=== PATIENT | male | born 1965 | race Hispanic/Latino ===

== ENCOUNTER 2019-01-28 16:18 | Emergency (ER) | payer OTHER ==
[2019-01-28 17:38] VITALS: BP 166/94
--- NOTE | 2019-01-28 17:39 | Emergency Department Report ---
Chief Complaint: Wound/Laceration Stated Complaint: (L) BIG TOE INFECTED Time Seen by Provider: 01/28/19 17:35 - HPI History of Present Illness: This is a 53 y.o. male that presents with left great toe pain and drainage from infection. PMH DM2 Patient treated with antibiotics twice and pain medication with no improvement of symptoms. - Exam Vital Signs: Vital Signs 01/28/19 17:36 Temperature 97.8 F Pulse Rate 95 H Respiratory 20 Rate Blood Pressure 166/94 O2 Sat by Pulse 95 Oximetry MSE screening note: Focused history and physical exam performed. Due to findings the following was ordered: lab acc for further evaluation ED Disposition for MSE Condition: Stable
[2019-01-28 18:30] LABS: Basophils # (Auto) 0.1 K/mm3 (0.0-0.1); Eosinophils # (Auto) 0.4 K/mm3 (0.0-0.4); Eosinophils % (Auto) 3.6 % (0.0-4.3); Hematocrit 49.4 % (35.5-45.6); Hemoglobin 16.7 gm/dl (11.8-15.2); Lymphocytes # (Auto) 2.6 K/mm3 (1.2-5.4); Lymphocytes % (Auto) 23.7 % (13.4-35.0); Mean Corpuscular HGB Conc 34 % (32-34); Mean Corpuscular Volume 89 fl (84-94); Monocytes % (Auto) 8.8 % (0.0-7.3); Platelet Count 228 K/mm3 (140-440); Red Blood Count 5.58 M/mm3 (3.65-5.03); Red Cell Distribution Width 14.5 % (13.2-15.2)
[2019-01-28 18:47] LABS: BUN/Creatinine Ratio 27; Blood Urea Nitrogen 27 mg/dL (9-20); Calcium 9.3 mg/dL (8.4-10.2); Hemolysis Index 21
--- NOTE | 2019-01-28 19:26 | XRay Report ---
PROCEDURE: XR TOE(S) 2+V LT TECHNIQUE: Frontal view left foot and oblique and lateral views left first toe HISTORY: wound left 1st distal toe COMPARISONS: None FINDINGS: There is soft tissue swelling of the left first toe. There is no evidence of radiopaque foreign body. There is a possible area of lytic change on the plantar surface of the distal phalanx in the region o f the distal diaphysis and proximal tuft. IMPRESSION: 1. Soft tissue swelling with possible lytic change on the plantar aspect of the distal phalanx first toe. CT or MRI may be helpful for further evaluation. This document is electronically signed by Елена Stinson MD., January 28 2019 07:24:52 PM ET
--- NOTE | 2019-01-28 21:09 | Emergency Department Report ---
- General Chief Complaint: Wound/Laceration Stated Complaint: (L) BIG TOE INFECTED Time Seen by Provider: 01/28/19 17:35 Source: patient Mode of arrival: Ambulatory Limitations: No Limitations - History of Present Illness Initial Comments: Pt is a 53 yo male who presents to the ED with c/o left toe infection that began 3 weeks ago. The patient states it initially started as a blister on the left toe. He denies any fever or drainage. He states he went to [facility] twice and was given different antibiotics twice but does not remember the name of the antibiotics. THe patient states he saw his PCP and was referred to [facility] within the next 2 weeks. THe patient has a hx of DM and has not checked his blood glucose in 3 weeks. He states he takes insulin 70/30 50 units in the morning and 50 units at night. The patient states he ate a candy bar prior to coming into the ED today. - Related Data Allergies Allergy/AdvReac Type Severity Reaction Status Date / Time No Known Allergies Allergy Unverified 01/28/19 16:23 ED Review of Systems ROS: Stated complaint: (L) BIG TOE INFECTED Other details as noted in HPI Comment: All other systems reviewed and negative ED Past Medical Hx - Past Medical History Previous Medical History?: Yes Hx Diabetes: Yes - Surgical History Past Surgical History?: No - Social History Smoking Status: Current Every Day Smoker Substance Use Type: None ED Physical Exam - General Limitations: No Limitations General appearance: alert, in no apparent distress - Head Head exam: Present: atraumatic, normocephalic - Eye Eye exam: Present: normal appearance - ENT ENT exam: Present: mucous membranes moist - Extremities Exam Extremities exam: Present: other (large eschar present to the medial side of the left great toe, small amount of surrounding erythema, no obvious purulence present, some increased warmth) - Neurological Exam Neurological exam: Present: alert, oriented X3 - Psychiatric Psychiatric exam: Present: normal affect, normal mood - Skin Skin exam: Present: warm, dry ED Course Vital Signs 01/28/19 17:36 Temperature 97.8 F Pulse Rate 95 H Respiratory 20 Rate Blood Pressure 166/94 O2 Sat by Pulse 95 Oximetry ED Medical Decision Making - Lab Data Result diagrams: 01/28/19 18:21 01/28/19 18:21 - Radiology Data Radiology results: report reviewed XR left great toe shows soft tissue swelling and possible lytic change - Medical Decision Making Pt is a 53 yo male who presents to the ED with c/o left toe infection that began 3 weeks ago. The patient states it initially started as a blister on the left toe. He denies any fever or drainage. He states he went to [facility] twice and was given different antibiotics twice but does not remember the name of the antibiotics. THe patient states he saw his PCP and was referred to [facility] within the next 2 weeks. THe patient has a hx of DM and has not checked his blood glucose in 3 weeks. He states he takes insulin 70/30 50 units in the morning and 50 units at night. The patient states he ate a candy bar prior to coming into the ED today. XR left great toe shows soft tissue swelling and possible lytic change. Blood glucose is 397. Advised pt that he would need to have a CT scan of the left foot to r/o osteomyelitis. Also, we would need to do an examination with a doppler US to identify pulses. Also, discussed with pt that we would need to give him insulin to lower his blood glucose. Pt was a greeable with plan, upon provider leaving the room the patient got into a disagreement with the woman in the room with him and decided he wanted to leave the emergency room. Discussed in detail with pt that it could cause harm to his life, loss of limb, permanent disability, or even if he left the emergency room today (01/28/19). AMA with witness: the patient is alert and oriented x 3. The patient exhibits decision making capacity. The patient is free from distracting injury. The risks of leaving without a complete medical examination, and AGAINST MEDICAL ADVICE, were explained to the patient, and they included , disability, paralysis, permanent loss of quality of life. The patient verbalized understanding to these and was able to articulate these risks in their own words and this conversation was witnessed by LILIANA Riddle. Critical care attestation.: If time is entered above; I have spent that time in minutes in the direct care of this critically ill patient, excluding procedure time. 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 Diabetes mellitus complication status: with skin complications Diabetes mellitus complication detail: with foot ulcer Qualified Code(s): E11.621 - Type 2 diabetes mellitus with foot ulcer; L97.509 - Non-pressure chronic ulcer of other part of unspecified foot with unspecified severity; Z79.4 - [facility] (current) use of insulin Diabetic foot ulcer Qualifiers: Diabetic foot ulcer location: toe Diabetes mellitus type: type 2 Laterality: left Non-pressure ulcer stage: with fat layer exposed Qualified Code(s): E11.621 - Type 2 diabetes mellitus with foot ulcer; L97.522 - Non-pressure chronic ulcer of other part of left foot with fat layer exposed Disposition: DC LEFT AGAINST MED ADVICE Is pt being admited?: No Does the pt Need Aspirin: No Condition: Undetermined Instructions: Diabetes Mellitus Type 2 in Adults (ED), Diabetic Foot Ulcers (ED) Referrals: EDE GARNICA MD [Primary Care Provider] - [facility] Forms: AMA Form Time of Disposition: 21:49 Print Language: LAO
== END 2019-01-28 21:06 | disposition left against medical advice (07) ==
LOC: ED 16:18
DX: E11.65 Type 2 diabetes mellitus with hyperglycemia (principal); E11.621 Type 2 diabetes mellitus with foot ulcer; F17.200 Nicotine dependence, unspecified, uncomplicated; Z79.4 Long term (current) use of insulin
CPT/HCPCS: 36415; 80048; 85025